=== PATIENT | female | born 1950 | race Caucasian/White ===

== ENCOUNTER 2019-09-28 11:07 | Emergency (ER) | payer MEDICARE, BC ==
--- NOTE | 2019-09-28 11:40 | ED ---
Lower Extremity - HPI Summary HPI Summary: 69-year-old female presents to emergency department today complaining of right foot pain after dropping a box of books onto her right foot 3 days ago. Patient currently states she is able to ambulate and has full range of motion of her right foot however the dorsal aspect is tender and is made worse with ambulation. Patient states she has taken her tramadol and ibuprofen for relief of pain. Patient states she has mild bruising to the dorsal aspect of her foot near the third toe. Patient otherwise feels well and denies fever, chest pain, abdominal pain, pain with urination, rash. Surgical history and family history are unremarkable. - History of Current Complaint Chief Complaint: EDExtremityLower Stated Complaint: RIGHT FOOT PAIN Time Seen by Provider: 09/28/19 11:37 Hx Obtained From: Patient Mechanism Of Injury: Direct Blow Onset of Pain: Immediate Onset/Duration: Days Severity Initially: Mild Severity Currently: Mild Pain Intensity: 4 Pain Scale Used: 0-10 Numeric Timing: Constant Character Of Pain: Aching Associated Signs And Symptoms: Positive: Redness, Bruising. Negative: Swelling Aggravating Factor(s): Standing, Ambulation, Movement, Weight Bearing, Stairs Alleviating Factor(s): Rest, Elevation Able to Bear Weight: Yes - Allergies/Home Medications Allergies/Adverse Reactions: Allergies Allergy/AdvReac Type Severity Reaction Status Date / Time morphine Allergy Headache Verified 09/28/19 11:13 PMH/Surg Hx/FS Hx/Imm Hx Infectious Disease History: No Infectious Disease History: Denies: Traveled Outside the [place] in Last 30 Days Review of Systems Constitutional: Negative Eyes: Negative ENT: Negative Cardiovascular: Negative Respiratory: Negative Gastrointestinal: Negative Genitourinary: Negative Positive: Arthralgia, Myalgia. Negative: Decreased ROM, Edema Positive: Bruising Neurological: Negative Psychological: Normal All Other Systems Reviewed And Are Negative: Yes Physical Exam Triage Information Reviewed: Yes Vital Signs On Initial Exam: Initial Vitals Temp Pulse Resp BP Pulse Ox 97.2 F 82 18 142/73 96 09/28/19 11:08 09/28/19 11:08 09/28/19 11:08 09/28/19 11:08 09/28/19 11:08 Vital Signs Reviewed: Yes Appearance: Positive: Well-Appearing, No Pain Distress, Well-Nourished Skin: Positive: Warm, Skin Color Reflects Adequate Perfusion Eyes: Positive: EOMI, SAMUEL ENT: Positive: Hearing grossly normal Respiratory/Lung Sounds: Positive: Clear to Auscultation, Breath Sounds Present Cardiovascular: Positive: RRR, S1, S2 Musculoskeletal: Positive: Strength/ROM Intact, Pain @ - dorsal aspect of R foot Neurological: Positive: Sensory/Motor Intact, Alert, Oriented to Person Place, Time, Normal Gait, Speech Normal Psychiatric: Positive: Normal AVPU Assessment: Alert Procedures - Sedation Patient Received Moderate/Deep Sedation with Procedure: No - Splinting Right Lower Extremity Location: R foot Pre-Made Type: Post OP shoe Hand-Made Type: - all Pre-Proc Neuro Vasc Exam: normal Post-Proc Neuro Vasc Exam: normal Splint Applied by Provider: [facility] - Vital Signs Vital Signs Temp Pulse Resp BP Pulse Ox 09/28/19 11:08 97.2 F 82 18 142/73 96 - Laboratory Lab Statement: Any lab studies that have been ordered have been reviewed, and results considered in the medical decision making process. Lower Extremity Course/Dx - Course Course Of Treatment: patient will be repeated in the emergency department today for right foot pain. Patient seen and examined her vitals are stable. She is afebrile. Patient had full range of motion of the ankle and foot joint. Patient had mild tenderness with palpation of the dorsal aspect of the right foot. X-rays are obtained which showed no evidence of fracture however there could be an occult fracture due to underlying osteopenia. Patient was given right foot postop shoe and told to practice rest, ice, elevate, compression and follow-up with her primary care provider for follow-up x-rays in the case of occult fracture. Patient agrees with plan. - Diagnoses Differential Diagnosis/HQI/PQRI: Positive: Arthritis, Fracture (Closed), Gout, Infection, Sprain, Strain Provider Diagnoses: Right foot pain Discharge ED - Sign-Out/Discharge Documenting (check all that apply): Patient Departure - Discharge Plan Condition: Stable Disposition: HOME Patient Education Materials: Arthralgia (ED) Referrals: [facility] [Outside] - 7 Days No Primary Care Phys,NOPCP [Primary Care Provider] - Additional Instructions: You were seen in the emergency department today due to foot pain. An x-ray was done which showed no evidence of fracture however there may be a fracture which is not able to be seen at this time. Please [facility] with [facility] in 2 weeks if symptoms persist. Please return to the emergency department immediately if you develop any new or worsening symptoms. - Billing Disposition and Condition Condition: STABLE Disposition: Home - Attestation Statements Provider Attestation: I was available for consult. This patient was seen by the [facility]ARD. The patient was not presented to, seen by, or examined by me. Kael Rosas MD
[2019-09-28 13:12] VITALS: BP 115/87
== END 2019-09-28 13:10 | disposition home or self-care (01) ==
LOC: ED 11:07
DX: M79.671 Pain in right foot (principal); Z88.5 Allergy status to narcotic agent
CPT/HCPCS: 99282